=== PATIENT | male | born 1970 | race Caucasian/White ===

== ENCOUNTER 2018-01-30 22:21 | Inpatient (IN) ==
[2018-01-30 23:44] LABS: Basophils % 0.2 %; Eosinophils % 0.3 %; Hematocrit 48.1 % (37.5-50.1); Hemoglobin 17.5 g/dL (12.9-16.9); Immature Granulocytes % 0.8 % (0-4); Lymphocytes % 11.3 %; Mean Corpuscular HGB Conc 36.4 g/dL (31.6-35.5); Mean Corpuscular Hemoglobin 31.2 pg (28.0-33.3); Mean Corpuscular Volume 85.7 fL (83.0-100.0); Mean Platelet Volume 10.6 fL (9.4-12.4); Monocytes # 1.6 K/mcL (0.0-1.3); Monocytes % 17.9 %; Neutrophils # 6.3 K/mcL (1.6-8.9); Platelet Count 263 K/mcL (140-400); Red Blood Count 5.61 M/mcL (4.19-5.50); Red Cell Distribution Width 13.2 % (11.5-14.5); Segmented Neutrophils % 69.5 %
--- NOTE | 2018-01-30 23:50 | Emergency Department Note ---
Disposition Clinical Impression: Hyperbilirubinemia, Transaminitis, Positive occult stool blood test Hepatitis A Qualifiers: Hepatic coma status: without hepatic coma Qualified Code(s): B15.9 - Hepatitis A without hepatic coma Hepatitis C Qualifiers: Viral hepatitis chronicity: acute Hepatic coma status: without hepatic coma Qualified Code(s): B17.10 - Acute hepatitis C without hepatic coma Disposition: Admitted As Inpatient Condition: Serious Referrals: NONE,PCP [Primary Care Provider] - Forms: ED Satisfaction Letter, Work/School Release Time of Disposition: 02:19 General Adult HPI - General Chief complaint: ED General Medical Stated complaint: Kidney Failure Time Seen by Provider: 01/30/18 23:44 Source: patient Mode of arrival: ambulatory Limitations: no limitations Nursing Notes Reviewed: Yes Vital Signs Reviewed: Yes - History of Present Illness HPI Narrative: Patient is a 47-year-old male that presents emergency department with abdominal pain and jaundice. Patient states that this is been ongoing for the past 5 days. Patient also states that his urine has become very dark. Patient denies any chest pain or shortness of breath. Patient does state that he has been vomiting. Patient states that has been dark in color and feels like it could be blood in his vomit. Patient states that he does have a history of IV drug use. States that the last time he used anything IV was approximately one week ago. States that it was methamphetamine. Patient states that he does not normally share needles. Patient states that he has been tested for hepatitis in the past and was negative. Patient says that he just overall does not feel well. Pain Scale: 6 - Related Data Allergies Allergy/AdvReac Type Severity Reaction Status Date / Time No Known Allergies Allergy Verified 01/30/18 22:23 All systems ED: reviewed and negative except as stated. Cardiovascular: Denies: chest pain Respiratory: Denies: dyspnea Gastrointestinal: Reports: abdominal pain, nausea, vomiting Genitourinary: Reports: other (Dark urine) Past Medical History - Past Medical History Medical history: Reports: no medical history Psychiatric history: Reports: no psych history - Social History Smoking Status: Current every day smoker Smokeless Tobacco Status: No Alcohol use: Reports: none Drug use: Reports: methamphetamine, IV Drug Use Physical Exam - General Limitations: no limitations General appearance: alert, in distress - Head Head exam: atraumatic, normocephalic - Eye Eye exam: Present: normal appearance, EOMI - Neck Neck exam: Present: normal inspection, full ROM, trachea midline - Respiratory Respiratory exam: Present: normal lung sounds bilaterally. Absent: respiratory distress, wheezes - Cardiovascular Cardiovascular exam: Present: normal rhythm, tachycardia, normal heart sounds, + S1, +S2 - Abdominal Exam Abdominal exam: Present: soft, tenderness, normal bowel sounds Abdominal tenderness: Present: diffuse, moderate - Neurological Exam Neurological exam: Present: alert, oriented X3 - Psychiatric Psychiatric exam: Present: normal affect, normal mood - Skin Skin exam: Present: warm, dry, intact, other (Jaundice) Course Vital Signs Temperature 98.4 F 01/30/18 22:23 Pulse Rate 122 01/30/18 22:23 Respiratory Rate 24 01/30/18 22:23 Blood Pressure 91/55 01/30/18 22:23 O2 Sat by Pulse Oximetry 99 01/30/18 22:23 Temperature 98.4 F 01/30/18 22:23 Pulse Rate 104 01/31/18 01:03 Respiratory Rate 16 01/31/18 01:03 Blood Pressure 108/79 01/31/18 01:03 O2 Sat by Pulse Oximetry 98 01/31/18 01:03 Oxygen Delivery Oxygen Delivery Room Air Medical Decision Making - MDM Narrative Medical decision making narrative: Due the patient's into the emergency department with abdominal pain and jaundice we will obtain a laboratory workup including CBC, BMP, hepatic panel, lipase, urinalysis, ammonia and a hepatitis panel. We will also obtain a CT scan of the abdomen and pelvis. Patient has a significantly elevated bilirubin of 23.4. His AST is greater than 3000 has failed to use greater than 500. This consistent with hepatitis. Patient's hepatitis panel was positive for hepatitis A and hepatitis C. Patient did have a positive stool occult. No active signs of bleeding at this time. Patient's urine was positive for nitrites and leukocyte esterase. Patient does not have any urinary complaints at this time. Will not treat his urine at this time. CT scan of the abdomen and pelvis showed biliary sludge and cholelithiasis or evidence of cholecystitis. Patient's hemoglobin is 17.5. I called and spoke with the admitting hospitalist Dr. Tong and he is accepted the patient to their service. We discussed this case and he felt comfortable with keeping the patient here at [facility]. Patient be admitted to the hospital at this time for further evaluation and management. - Medical Records Medical records reviewed: Yes I reviewed the patient's medical records. - Lab Data Lab results reviewed: Yes I reviewed the patient's lab results. Result diagrams: 01/30/18 23:29 01/30/18 23:29 Lab Results 01/30/18 01/30/18 01/30/18 Range/Units 23:29 23:29 23:29 WBC 9.1 (4.3-11.1) K/mcL RBC 5.61 H (4.19-5.50) M/mcL Hgb 17.5 H (12.9-16.9) g/dL Hct 48.1 (37.5-50.1) % MCV 85.7 (83.0-100.0) fL MCH 31.2 (28.0-33.3) pg MCHC 36.4 H (31.6-35.5) g/dL RDW 13.2 (11.5-14.5) % Plt Count 263 (140-400) K/mcL MPV 10.6 (9.4-12.4) fL Immature Gran % 0.8 (0-4) % Seg Neutrophils % 69.5 % Lymphocytes % 11.3 % Monocytes % 17.9 % Eosinophils % 0.3 % Basophils % 0.2 % Neutrophils # 6.3 (1.6-8.9) K/mcL Lymphocytes # 1.0 (0.6-4.6) K/mcL Monocytes # 1.6 H (0.0-1.3) K/mcL Eosinophils # 0.0 (0.0-0.6) K/mcL Basophils # 0.0 (0.0-0.2) K/mcL PT (9.4-12.1) Seconds INR APTT (26.0-36.0) Seconds Sodium 129 L (136-145) mEq/L Potassium 3.7 (3.5-5.1) mEq/L Chloride 90 L (98-107) mEq/L Carbon Dioxide 25 (23-29) mEq/L BUN 19 (6-20) mg/dL Creatinine 1.27 (0.70-1.30) mg/dL Est GFR ( Amer) > 60 (> 60) Est GFR (Non-Af Amer) > 60 (> 60) BUN/Creatinine Ratio 15 (6-26) Glucose 129 H (70-105) mg/dL Calculated Osmolality 272 L (280-300) Calcium 9.1 (8.6-10.3) mg/dL Total Bilirubin 23.4 H (0.3-1.0) mg/dL Direct Bilirubin 15.3 H (0.0-0.2) mg/dL Indirect Bilirubin 8.1 H (0.0-1.2) mg/dL AST > 3000 H (13-39) Units/L ALT > 500 H (7-52) Units/L Alkaline Phosphatase 94 (34-104) Units/L Ammonia (16-53) mcmol/L Serum Total Protein 6.9 (6.4-8.9) g/dL Albumin 3.3 L (3.5-5.7) g/dL Globulin 3.6 H (2.4-3.5) g/dL Albumin/Globulin Ratio 0.9 L (1.1-2.2) Amylase 42 (29-103) Units/L Lipase 74 (11-82) Units/L Urine Color (Yellow) Urine Clarity (Clear) Urine pH (5.0-8.0) pH Units Ur Specific [place] (1.010-1.025) Urine Protein (Neg-Trace) mg/dL Urine Glucose (UA) (Normal) mg/dL Urine Ketones (Negative) mg/dL Urine Blood (Negative) Urine Nitrite (Negative) Urine Bilirubin (Negative) Urine Urobilinogen (Normal) mg/dL Ur Leukocyte Esterase (Negative) Urine Microscopic RBC (0-3) per hpf Urine Microscopic WBC (0-3) per hpf Ur Squamous Epith Cells (None-Few) per lpf Ur Transition Epith Cell (None-Few) per hpf Urine Bacteria (None-Few) per hpf Hyaline Casts Ur Culture Indicated? (NO) Stool Occult Blood (Negative) Hepatitis A IgM Ab Reactive H (Nonreactive) Hep Bs Antigen Nonreactive (Nonreactive) Hep B Core IgM Ab Nonreactive (Nonreactive) Hepatitis C Ab Screen Reactive H (Nonreactive) 01/30/18 01/30/18 01/31/18 Range/Units 23:29 23:29 01:01 WBC (4.3-11.1) K/mcL RBC (4.19-5.50) M/mcL Hgb (12.9-16.9) g/dL Hct (37.5-50.1) % MCV (83.0-100.0) fL MCH (28.0-33.3) pg MCHC (31.6-35.5) g/dL RDW (11.5-14.5) % Plt Count (140-400) K/mcL MPV (9.4-12.4) fL Immature Gran % (0-4) % Seg Neutrophils % % Lymphocytes % % Monocytes % % Eosinophils % % Basophils % % Neutrophils # (1.6-8.9) K/mcL Lymphocytes # (0.6-4.6) K/mcL Monocytes # (0.0-1.3) K/mcL Eosinophils # (0.0-0.6) K/mcL Basophils # (0.0-0.2) K/mcL PT 20.4 H (9.4-12.1) Seconds INR 1.8 APTT 40.3 H (26.0-36.0) Seconds Sodium (136-145) mEq/L Potassium (3.5-5.1) mEq/L Chloride (98-107) mEq/L Carbon Dioxide (23-29) mEq/L BUN (6-20) mg/dL Creatinine (0.70-1.30) mg/dL Est GFR ( Amer) (> 60) Est GFR (Non-Af Amer) (> 60) BUN/Creatinine Ratio (6-26) Glucose (70-105) mg/dL Calculated Osmolality (280-300) Calcium (8.6-10.3) mg/dL Total Bilirubin (0.3-1.0) mg/dL Direct Bilirubin (0.0-0.2) mg/dL Indirect Bilirubin (0.0-1.2) mg/dL AST (13-39) Units/L ALT (7-52) Units/L Alkaline Phosphatase (34-104) Units/L Ammonia 98 H (16-53) mcmol/L Serum Total Protein (6.4-8.9) g/dL Albumin (3.5-5.7) g/dL Globulin (2.4-3.5) g/dL Albumin/Globulin Ratio (1.1-2.2) Amylase (29-103) Units/L Lipase (11-82) Units/L Urine Color Rhonda A (Yellow) Urine Clarity Cloudy A (Clear) Urine pH 5.5 (5.0-8.0) pH Units Ur Specific [place] 1.024 (1.010-1.025) Urine Protein Negative (Neg-Trace) mg/dL Urine Glucose (UA) Normal (Normal) mg/dL Urine Ketones 15 H (Negative) mg/dL Urine Blood Negative (Negative) Urine Nitrite Positive A (Negative) Urine Bilirubin Large H (Negative) Urine Urobilinogen 4.0 H (Normal) mg/dL Ur Leukocyte Esterase Small H (Negative) Urine Microscopic RBC 15-30 H (0-3) per hpf Urine Microscopic WBC 50-100 H (0-3) per hpf Ur Squamous Epith Cells Moderate H (None-Few) per lpf Ur Transition Epith Cell Many H (None-Few) per hpf Urine Bacteria Many H (None-Few) per hpf Hyaline Casts Test Not Performed Ur Culture Indicated? YES A (NO) Stool Occult Blood (Negative) Hepatitis A IgM Ab (Nonreactive) Hep Bs Antigen (Nonreactive) Hep B Core IgM Ab (Nonreactive) Hepatitis C Ab Screen (Nonreactive) 01/31/18 Range/Units 01:26 WBC (4.3-11.1) K/mcL RBC (4.19-5.50) M/mcL Hgb (12.9-16.9) g/dL Hct (37.5-50.1) % MCV (83.0-100.0) fL MCH (28.0-33.3) pg MCHC (31.6-35.5) g/dL RDW (11.5-14.5) % Plt Count (140-400) K/mcL MPV (9.4-12.4) fL Immature Gran % (0-4) % Seg Neutrophils % % Lymphocytes % % Monocytes % % Eosinophils % % Basophils % % Neutrophils # (1.6-8.9) K/mcL Lymphocytes # (0.6-4.6) K/mcL Monocytes # (0.0-1.3) K/mcL Eosinophils # (0.0-0.6) K/mcL Basophils # (0.0-0.2) K/mcL PT (9.4-12.1) Seconds INR APTT (26.0-36.0) Seconds Sodium (136-145) mEq/L Potassium (3.5-5.1) mEq/L Chloride (98-107) mEq/L Carbon Dioxide (23-29) mEq/L BUN (6-20) mg/dL Creatinine (0.70-1.30) mg/dL Est GFR ( Amer) (> 60) Est GFR (Non-Af Amer) (> 60) BUN/Creatinine Ratio (6-26) Glucose (70-105) mg/dL Calculated Osmolality (280-300) Calcium (8.6-10.3) mg/dL Total Bilirubin (0.3-1.0) mg/dL Direct Bilirubin (0.0-0.2) mg/dL Indirect Bilirubin (0.0-1.2) mg/dL AST (13-39) Units/L ALT (7-52) Units/L Alkaline Phosphatase (34-104) Units/L Ammonia (16-53) mcmol/L Serum Total Protein (6.4-8.9) g/dL Albumin (3.5-5.7) g/dL Globulin (2.4-3.5) g/dL Albumin/Globulin Ratio (1.1-2.2) Amylase (29-103) Units/L Lipase (11-82) Units/L Urine Color (Yellow) Urine Clarity (Clear) Urine pH (5.0-8.0) pH Units Ur Specific [place] (1.010-1.025) Urine Protein (Neg-Trace) mg/dL Urine Glucose (UA) (Normal) mg/dL Urine Ketones (Negative) mg/dL Urine Blood (Negative) Urine Nitrite (Negative) Urine Bilirubin (Negative) Urine Urobilinogen (Normal) mg/dL Ur Leukocyte Esterase (Negative) Urine Microscopic RBC (0-3) per hpf Urine Microscopic WBC (0-3) per hpf Ur Squamous Epith Cells (None-Few) per lpf Ur Transition Epith Cell (None-Few) per hpf Urine Bacteria (None-Few) per hpf Hyaline Casts Ur Culture Indicated? (NO) Stool Occult Blood Positive A (Negative) Hepatitis A IgM Ab (Nonreactive) Hep Bs Antigen (Nonreactive) Hep B Core IgM Ab (Nonreactive) Hepatitis C Ab Screen (Nonreactive) - Radiology Data Radiology results reviewed: Yes I reviewed the patient's radiology results. Abdomen/Pelvis CT 01/31/18 00:01 IMPRESSION: 1. No acute process identified. 2. Low-attenuation of the liver suggests fatty infiltration. 3. Suspected gallbladder sludge or cholelithiasis with no CT evidence for acute cholecystitis. 4. Mild splenomegaly. D/ / Keaton Perez MD / Keaton Perez MD Interpreting Provider: Keaton Perez MD - EKG Data EKG #1 EKG attestation: Yes I reviewed and interpreted this EKG. EKG results narrative: EKG shows a sinus tachycardia at a rate of 113 bpm, OR interval of 155, QRS duration of 103, QTC of 508. No evidence of STEMI on EKG.
[2018-01-31 00:18] LABS: Alanine Aminotransferase > 500 Units/L (7-52); Albumin 3.3 g/dL (3.5-5.7); Albumin/Globulin Ratio 0.9 (1.1-2.2); Alkaline Phosphatase 94 Units/L (34-104); Amylase 42 Units/L (29-103); Aspartate Amino Transferase > 3000 Units/L (13-39); BUN/Creatinine Ratio 15 (6-26); Bilirubin,Direct 15.3 mg/dL (0.0-0.2); Bilirubin,Indirect 8.1 mg/dL (0.0-1.2); Bilirubin,Total 23.4 mg/dL (0.3-1.0); Blood Urea Nitrogen 19 mg/dL (6-20); Calcium 9.1 mg/dL (8.6-10.3); Carbon Dioxide 25 mEq/L (23-29); Chloride 90 mEq/L (98-107); Globulin 3.6 g/dL (2.4-3.5); Glucose 129 mg/dL (70-105); Lipase 74 Units/L (11-82); Osmolality,Calculated 272 (280-300); Potassium 3.7 mEq/L (3.5-5.1); Sodium 129 mEq/L (136-145); Total Protein 6.9 g/dL (6.4-8.9); eGFR For Non-African Americans > 60 (> 60)
[2018-01-31 01:16] LABS: RBC,Urine 15-30 per hpf (0-3); Squamous Epithelial Cell,Urine Moderate per lpf (None-Few); WBC,Urine 50-100 per hpf (0-3)
[2018-01-31 01:17] LABS: Clarity,Urine Cloudy (Clear); Color,Urine Amber (Yellow)
[2018-01-31 01:18] LABS: Bilirubin,Urine Large (Negative); Blood,Urine Negative (Negative); Glucose,Urine (UA) Normal (Normal); Ketones,Urine 15 mg/dL (Negative); Leukocyte Esterase,Urine Small (Negative); Nitrite,Urine Positive (Negative); PH,Urine 5.5 pH Units (5.0-8.0); Protein,Urine Negative (Neg-Trace); Specific Gravity,Urine 1.024 (1.010-1.025)
[2018-01-31 01:21] LABS: Hepatitis B Surface Antigen Nonreactive (Nonreactive)
[2018-01-31 01:22] LABS: Hepatitis B Core IgM Nonreactive (Nonreactive)
[2018-01-31 01:23] LABS: Hepatitis A Antibody IgM Reactive (Nonreactive)
[2018-01-31 01:24] LABS: INR 1.8; Prothrombin Time 20.4 Seconds (9.4-12.1)
[2018-01-31 01:26] LABS: Activated Partial Thrombo Time 40.3 Seconds (26.0-36.0)
[2018-01-31 01:29] LABS: Bacteria,Urine Many per hpf (None-Few)
[2018-01-31 01:32] LABS: Transitional Epi Cells,Urine Many per hpf (None-Few)
[2018-01-31 01:37] LABS: Hepatitis C Virus Antibody Reactive (Nonreactive)
--- NOTE | 2018-01-31 01:55 | Emergency Department Note ---
Disposition Clinical Impression: Hyperbilirubinemia, Transaminitis, Positive occult stool blood test Hepatitis A Qualifiers: Hepatic coma status: without hepatic coma Qualified Code(s): B15.9 - Hepatitis A without hepatic coma Hepatitis C Qualifiers: Viral hepatitis chronicity: acute Hepatic coma status: without hepatic coma Qualified Code(s): B17.10 - Acute hepatitis C without hepatic coma Disposition: Admitted As Inpatient Condition: Serious Referrals: NONE,PCP [Primary Care Provider] - Forms: ED Satisfaction Letter, Work/School Release General Adult HPI - General Chief complaint: ED General Medical Stated complaint: Kidney Failure Time Seen by Provider: 01/30/18 23:44 Source: patient Mode of arrival: ambulatory Limitations: no limitations Nursing Notes Reviewed: Yes Vital Signs Reviewed: Yes - History of Present Illness Pain Scale: 6 - Related Data Home Medications Medication Instructions Recorded Confirmed No Known Home Drugs 01/31/18 01/31/18 Allergies Allergy/AdvReac Type Severity Reaction Status Date / Time No Known Allergies Allergy Verified 01/30/18 22:23 Cardiovascular: Denies: chest pain Respiratory: Denies: dyspnea Gastrointestinal: Reports: abdominal pain, nausea, vomiting Genitourinary: Reports: other (Dark urine) Past Medical History - Past Medical History Medical history: Reports: no medical history Psychiatric history: Reports: no psych history - Social History Smoking Status: Current every day smoker Smokeless Tobacco Status: No Alcohol use: Reports: none Drug use: Reports: methamphetamine, IV Drug Use Physical Exam - General Limitations: no limitations General appearance: alert, in distress Course Vital Signs Temperature 98.4 F 01/30/18 22:23 Pulse Rate 122 01/30/18 22:23 Respiratory Rate 24 01/30/18 22:23 Blood Pressure 91/55 01/30/18 22:23 O2 Sat by Pulse Oximetry 99 01/30/18 22:23 Temperature 98.4 F 01/30/18 22:23 Pulse Rate 104 01/31/18 01:03 Respiratory Rate 16 01/31/18 01:03 Blood Pressure 108/79 01/31/18 01:03 O2 Sat by Pulse Oximetry 98 01/31/18 01:03 Oxygen Delivery Oxygen Delivery Room Air Medical Decision Making - Medical Records Medical records reviewed: Yes I reviewed the patient's medical records. - Lab Data Lab results reviewed: Yes I reviewed the patient's lab results. Result diagrams: 01/30/18 23:29 01/30/18 23:29 Lab Results 01/30/18 01/30/18 01/30/18 Range/Units 23:29 23:29 23:29 WBC 9.1 (4.3-11.1) K/mcL RBC 5.61 H (4.19-5.50) M/mcL Hgb 17.5 H (12.9-16.9) g/dL Hct 48.1 (37.5-50.1) % MCV 85.7 (83.0-100.0) fL MCH 31.2 (28.0-33.3) pg MCHC 36.4 H (31.6-35.5) g/dL RDW 13.2 (11.5-14.5) % Plt Count 263 (140-400) K/mcL MPV 10.6 (9.4-12.4) fL Immature Gran % 0.8 (0-4) % Seg Neutrophils % 69.5 % Lymphocytes % 11.3 % Monocytes % 17.9 % Eosinophils % 0.3 % Basophils % 0.2 % Neutrophils # 6.3 (1.6-8.9) K/mcL Lymphocytes # 1.0 (0.6-4.6) K/mcL Monocytes # 1.6 H (0.0-1.3) K/mcL Eosinophils # 0.0 (0.0-0.6) K/mcL Basophils # 0.0 (0.0-0.2) K/mcL PT (9.4-12.1) Seconds INR APTT (26.0-36.0) Seconds Sodium 129 L (136-145) mEq/L Potassium 3.7 (3.5-5.1) mEq/L Chloride 90 L (98-107) mEq/L Carbon Dioxide 25 (23-29) mEq/L BUN 19 (6-20) mg/dL Creatinine 1.27 (0.70-1.30) mg/dL Est GFR ( Amer) > 60 (> 60) Est GFR (Non-Af Amer) > 60 (> 60) BUN/Creatinine Ratio 15 (6-26) Glucose 129 H (70-105) mg/dL Calculated Osmolality 272 L (280-300) Calcium 9.1 (8.6-10.3) mg/dL Total Bilirubin 23.4 H (0.3-1.0) mg/dL Direct Bilirubin 15.3 H (0.0-0.2) mg/dL Indirect Bilirubin 8.1 H (0.0-1.2) mg/dL AST > 3000 H (13-39) Units/L ALT > 500 H (7-52) Units/L Alkaline Phosphatase 94 (34-104) Units/L Ammonia (16-53) mcmol/L Serum Total Protein 6.9 (6.4-8.9) g/dL Albumin 3.3 L (3.5-5.7) g/dL Globulin 3.6 H (2.4-3.5) g/dL Albumin/Globulin Ratio 0.9 L (1.1-2.2) Amylase 42 (29-103) Units/L Lipase 74 (11-82) Units/L Urine Color (Yellow) Urine Clarity (Clear) Urine pH (5.0-8.0) pH Units Ur Specific [place] (1.010-1.025) Urine Protein (Neg-Trace) mg/dL Urine Glucose (UA) (Normal) mg/dL Urine Ketones (Negative) mg/dL Urine Blood (Negative) Urine Nitrite (Negative) Urine Bilirubin (Negative) Urine Urobilinogen (Normal) mg/dL Ur Leukocyte Esterase (Negative) Urine Microscopic RBC (0-3) per hpf Urine Microscopic WBC (0-3) per hpf Ur Squamous Epith Cells (None-Few) per lpf Ur Transition Epith Cell (None-Few) per hpf Urine Bacteria (None-Few) per hpf Hyaline Casts Ur Culture Indicated? (NO) Stool Occult Blood (Negative) Hepatitis A IgM Ab Reactive H (Nonreactive) Hep Bs Antigen Nonreactive (Nonreactive) Hep B Core IgM Ab Nonreactive (Nonreactive) Hepatitis C Ab Screen Reactive H (Nonreactive) 01/30/18 01/30/18 01/31/18 Range/Units 23:29 23:29 01:01 WBC (4.3-11.1) K/mcL RBC (4.19-5.50) M/mcL Hgb (12.9-16.9) g/dL Hct (37.5-50.1) % MCV (83.0-100.0) fL MCH (28.0-33.3) pg MCHC (31.6-35.5) g/dL RDW (11.5-14.5) % Plt Count (140-400) K/mcL MPV (9.4-12.4) fL Immature Gran % (0-4) % Seg Neutrophils % % Lymphocytes % % Monocytes % % Eosinophils % % Basophils % % Neutrophils # (1.6-8.9) K/mcL Lymphocytes # (0.6-4.6) K/mcL Monocytes # (0.0-1.3) K/mcL Eosinophils # (0.0-0.6) K/mcL Basophils # (0.0-0.2) K/mcL PT 20.4 H (9.4-12.1) Seconds INR 1.8 APTT 40.3 H (26.0-36.0) Seconds Sodium (136-145) mEq/L Potassium (3.5-5.1) mEq/L Chloride (98-107) mEq/L Carbon Dioxide (23-29) mEq/L BUN (6-20) mg/dL Creatinine (0.70-1.30) mg/dL Est GFR ( Amer) (> 60) Est GFR (Non-Af Amer) (> 60) BUN/Creatinine Ratio (6-26) Glucose (70-105) mg/dL Calculated Osmolality (280-300) Calcium (8.6-10.3) mg/dL Total Bilirubin (0.3-1.0) mg/dL Direct Bilirubin (0.0-0.2) mg/dL Indirect Bilirubin (0.0-1.2) mg/dL AST (13-39) Units/L ALT (7-52) Units/L Alkaline Phosphatase (34-104) Units/L Ammonia 98 H (16-53) mcmol/L Serum Total Protein (6.4-8.9) g/dL Albumin (3.5-5.7) g/dL Globulin (2.4-3.5) g/dL Albumin/Globulin Ratio (1.1-2.2) Amylase (29-103) Units/L Lipase (11-82) Units/L Urine Color Rhonda A (Yellow) Urine Clarity Cloudy A (Clear) Urine pH 5.5 (5.0-8.0) pH Units Ur Specific [place] 1.024 (1.010-1.025) Urine Protein Negative (Neg-Trace) mg/dL Urine Glucose (UA) Normal (Normal) mg/dL Urine Ketones 15 H (Negative) mg/dL Urine Blood Negative (Negative) Urine Nitrite Positive A (Negative) Urine Bilirubin Large H (Negative) Urine Urobilinogen 4.0 H (Normal) mg/dL Ur Leukocyte Esterase Small H (Negative) Urine Microscopic RBC 15-30 H (0-3) per hpf Urine Microscopic WBC 50-100 H (0-3) per hpf Ur Squamous Epith Cells Moderate H (None-Few) per lpf Ur Transition Epith Cell Many H (None-Few) per hpf Urine Bacteria Many H (None-Few) per hpf Hyaline Casts Test Not Performed Ur Culture Indicated? YES A (NO) Stool Occult Blood (Negative) Hepatitis A IgM Ab (Nonreactive) Hep Bs Antigen (Nonreactive) Hep B Core IgM Ab (Nonreactive) Hepatitis C Ab Screen (Nonreactive) 01/31/18 Range/Units 01:26 WBC (4.3-11.1) K/mcL RBC (4.19-5.50) M/mcL Hgb (12.9-16.9) g/dL Hct (37.5-50.1) % MCV (83.0-100.0) fL MCH (28.0-33.3) pg MCHC (31.6-35.5) g/dL RDW (11.5-14.5) % Plt Count (140-400) K/mcL MPV (9.4-12.4) fL Immature Gran % (0-4) % Seg Neutrophils % % Lymphocytes % % Monocytes % % Eosinophils % % Basophils % % Neutrophils # (1.6-8.9) K/mcL Lymphocytes # (0.6-4.6) K/mcL Monocytes # (0.0-1.3) K/mcL Eosinophils # (0.0-0.6) K/mcL Basophils # (0.0-0.2) K/mcL PT (9.4-12.1) Seconds INR APTT (26.0-36.0) Seconds Sodium (136-145) mEq/L Potassium (3.5-5.1) mEq/L Chloride (98-107) mEq/L Carbon Dioxide (23-29) mEq/L BUN (6-20) mg/dL Creatinine (0.70-1.30) mg/dL Est GFR ( Amer) (> 60) Est GFR (Non-Af Amer) (> 60) BUN/Creatinine Ratio (6-26) Glucose (70-105) mg/dL Calculated Osmolality (280-300) Calcium (8.6-10.3) mg/dL Total Bilirubin (0.3-1.0) mg/dL Direct Bilirubin (0.0-0.2) mg/dL Indirect Bilirubin (0.0-1.2) mg/dL AST (13-39) Units/L ALT (7-52) Units/L Alkaline Phosphatase (34-104) Units/L Ammonia (16-53) mcmol/L Serum Total Protein (6.4-8.9) g/dL Albumin (3.5-5.7) g/dL Globulin (2.4-3.5) g/dL Albumin/Globulin Ratio (1.1-2.2) Amylase (29-103) Units/L Lipase (11-82) Units/L Urine Color (Yellow) Urine Clarity (Clear) Urine pH (5.0-8.0) pH Units Ur Specific [place] (1.010-1.025) Urine Protein (Neg-Trace) mg/dL Urine Glucose (UA) (Normal) mg/dL Urine Ketones (Negative) mg/dL Urine Blood (Negative) Urine Nitrite (Negative) Urine Bilirubin (Negative) Urine Urobilinogen (Normal) mg/dL Ur Leukocyte Esterase (Negative) Urine Microscopic RBC (0-3) per hpf Urine Microscopic WBC (0-3) per hpf Ur Squamous Epith Cells (None-Few) per lpf Ur Transition Epith Cell (None-Few) per hpf Urine Bacteria (None-Few) per hpf Hyaline Casts Ur Culture Indicated? (NO) Stool Occult Blood Positive A (Negative) Hepatitis A IgM Ab (Nonreactive) Hep Bs Antigen (Nonreactive) Hep B Core IgM Ab (Nonreactive) Hepatitis C Ab Screen (Nonreactive) - Radiology Data Radiology results reviewed: Yes I reviewed the patient's radiology results. Abdomen/Pelvis CT 01/31/18 00:01 IMPRESSION: 1. No acute process identified. 2. Low-attenuation of the liver suggests fatty infiltration. 3. Suspected gallbladder sludge or cholelithiasis with no CT evidence for acute cholecystitis. 4. Mild splenomegaly. D/ / Keaton Perez MD / Keaton Perez MD Interpreting Provider: Keaton Perez MD Critical Care Time Critical Care Time: Yes Total Critical Care Time: 35 Attestation: Critical care performed: Time is exclusive of separately billable procedures. Time includes: direct patient care, patient reassessment, coordination of patient care, interpretation of data (laboratory data, radiology data, and respiratory data), review of patient's medical records, medical consultation and documentation of patient care. Procedures included in critical care time: Procedures excluded from critical care time: Attestation Statement - Attestation Attestation: I, Anders Toussaint MD, personally evaluated this patient and discussed their management with the resident physician. I reviewed the resident's note and agree with the documented findings, medical decision making, and plan of care. 47-year-old male presents to the emergency department with a complaint of hiccups with bilateral mid and upper abdominal pain which started about one week prior to arrival. Symptoms started a few days after injecting some meth. Patient also has developed nausea and vomiting for the past several days. Some dark emesis and dark blood in the vomiting. He has had only had one bowel movement in the last week which he states was black. No chest pain other than from the hiccups. No shortness of breath. No fever. Also noticed that his urine is extremely dark. Also complains of jaundice. He denies prior known history of hepatitis. On examination patient is a well-developed well-nourished male in no acute distress. He is alert and oriented 3. There is no cyanosis or diaphoresis. Patient does have marked jaundice and scleral icterus. Frequent hiccups noted. Breath sounds are clear and equal bilaterally. Heart regular with a mild tachycardia. Abdomen soft with mild diffuse upper abdominal tenderness palpable organomegaly or masses. No guarding or rebound tenderness. On rectal exam by me there was some soft light brownish yellow stool in the rectum. No gross blood or melena. Labs reviewed. Hepatitis. Panel positive for hepatitis A and hepatitis C. The hospitalist, Dr. Tong, was consulted and accepted admission of the patient.
[2018-01-31] MEDS ORDERED: Naloxone 0.4 MG/ML INJ IVP PRN ×2 (04:27→06:30)
[2018-01-31] MEDS ORDERED: Metoclopramide 10 MG/10 ML UD.LIQ PO PRN ×2 (04:51→10:46)
[2018-01-31] MEDS ORDERED: Ondansetron 4 MG/2 ML VIAL IVP PRN (04:51)
--- NOTE | 2018-01-31 05:03 | Internal Med History&Physical ---
Addendum entered and electronically signed by Michele Romero DO 06:32: UTI: patient denies dysuria, urinary frequency and urgency. Urinalysis positive for nitrite, esterase but also dirty catch. Repeat urinalysis. Original Note: <HeatherMichele Diehl - Last Filed: 01/31/18 05:41> Date of Encounter: 01/31/18 Time of Encounter: 05:00 Internal Medicine - H&P: HPI Chief complaint: Jaundice Admitted From: Home Plans for Post Hospital Care: Home History of present illness: Mr. Conteh is a 47 year old male presented chief complaint jaundice 5 days. Patient reports that a friend of his noticed that he was jaundiced. He also notices urine become very dark. He started having nausea and vomiting. He states he vomited multiple times and has been having nonstop hiccups. He does report dark red vomit and reports it is likely blood. He also states since admission his had 1 additional bout of vomiting with bright red blood about a fourth of a cup. He reports one black bowel movement today. Patient has a history of IV drug use for the last 6 weeks. He uses methamphetamine. He denies heroin use, needle sharing. He states he has been tested for hepatitis in the past was negative. He reports anal sex with women. He denies previous abdominal surgeries, alcohol use. Patient reports he is a smoker. He denies any family history. 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 Patient has tattoos and reports that her from safe places. Past Med Surg Social Fam HX - Past Medical History Medical history: no medical history Psychiatric history: no psych history - Past Surgical History Surgical History: no surgical history - Social History Smoking Status: Current every day smoker Smokeless Tobacco Status: No Alcohol use: none Drug use: methamphetamine, IV Drug Use Occupational status: employed Current living situation: Home - Independent Internal Medicine - H&P: Meds No Known Home Drugs 01/31/18 [History] 3 Allergy/AdvReac Type Severity Reaction Status Date / Time No Known Allergies Allergy Verified 01/30/18 22:23 All Systems PM: A 10-system review of systems was performed and is negative for pertinent findings except as documented above in the HPI. Review of systems: Constitutional: Denies fever, chills HEENT: Denies headache, trauma, blurry vision, eye discharge, ear pain, ear discharge neck pain, sore throat, rhinorrhea Heart: Denies chest pain palpitations, LE edema Lungs: Denies shortness of breath cough Abdomen: Denies abdominal pain. Reports nausea vomiting, black stool, hematemesis MSK: Denies back pain, falls, joint pain Kidney: Denies dysuria, hematuria Skin: Denies rash, ulcers Neuro: Denies numbness and tingling Psych: denies axniety, depression - Constitutional Vitals: Temp Pulse Resp BP Pulse Ox 98.7 F 97 14 115/82 98 01/31/18 03:11 01/31/18 03:11 01/31/18 03:11 01/31/18 03:11 01/31/18 03:11 Exam: General: pleasant, mild distress, jaundice HEENT: Head atraumatic, normocephalic, EOMI, PERRL, absent ear discharge or trauma, Moist Mucous Membranes, uvula midline. Scleral icterus Neck: nontender to palpation, absent lymphadenopathy, Cardiovascualr: Regular rate and rhythm with no murmur, absent gallops or rubs, absent pedal edema, radial pulses 2 out of 4 Lungs: Clear to auscultation bilaterally, not in respiratory distress Abdomen: Soft nontender, nondistended positive bowel sounds, absent hepatomegaly Skin: Jaundice, absent rash, absent open wounds and nodules MSK: absent clubbing, cyanosis, joints without swelling Neuro: Cranial nerves II through XII intact, UE and LE sensation equal bilaterally, UE and LEstrength 5/5, alert oriented 3, Psych: Poor insight and judgment, anxious Internal Med - H&P Results - Labs CBC & Chem 7: 01/30/18 23:29 01/30/18 23:29 - Assessment and plan (1) Transaminitis Current Visit: Yes Status: Acute Assessment and plan: Secondary to hepatitis A in conjunction with hepatitis C alert and oriented x3 liver ultrasound We will start patient on IV fluids Nothing by mouth Zofran when necessary nausea Reglan when necessary hiccups (2) Positive occult stool blood test Current Visit: Yes Status: Acute Assessment and plan: Patient reports hematemesis and melena Hemoglobin 17.5 secondary to hemoconcentration Blood pressure is stable at 115/82 Starting patient on IV fluids PPI twice a day, surgery consult (3) Hepatitis A Current Visit: Yes Status: Acute Assessment and plan: Patient has hepatitis A Reports anal sex, Plan as above. Qualifiers: Hepatic coma status: without hepatic coma Qualified Code(s): B15.9 - Hepatitis A without hepatic coma (4) Hepatitis C Current Visit: Yes Status: Acute Assessment and plan: Patient has newly diagnosed hepatitis C He is IV drug user Will need outpatient follow-up with GI Qualifiers: Viral hepatitis chronicity: acute Hepatic coma status: without hepatic coma Qualified Code(s): B17.10 - Acute hepatitis C without hepatic coma (5) IV drug user Current Visit: Yes Status: Acute Assessment and plan: Patient uses methamphetamine IV for the last 6 weeks Reports last use was one week ago UDS - Time Spent With Patient Total time spent is greater than 50% in coordination of care (as documented) at patient's floor/unit and/or counseling patient: <Chela Jose - Last Filed: 01/31/18 08:03> Date of Encounter: 01/31/18 Internal Medicine - H&P: HPI History of present illness: Mr. Conteh is a 47 year old male All Systems PM: A 10-system review of systems was performed and is negative for pertinent findings except as documented above in the HPI. - Constitutional Vitals: Temp Pulse Resp BP Pulse Ox 98.7 F 97 14 115/82 98 01/31/18 03:11 01/31/18 03:11 01/31/18 03:11 01/31/18 03:11 01/31/18 03:11 Internal Med - H&P Results - Labs CBC & Chem 7: 01/31/18 06:57 01/30/18 23:29 Labs: Short CBC 01/31/18 Range/Units 06:57 Hgb 16.7 (12.9-16.9) g/dL Hct 46.9 (37.5-50.1) % Urine 01/31/18 Range/Units 06:50 Urine Color [place] A (Yellow) Urine Clarity Cloudy A (Clear) Urine pH 6.0 (5.0-8.0) pH Units Ur Specific [place] 1.018 (1.010-1.025) Urine Protein Negative (Neg-Trace) mg/dL Urine Glucose (UA) Normal (Normal) mg/dL - Assessment and plan (1) Hepatitis A Current Visit: Yes Status: Acute Qualifiers: Hepatic coma status: without hepatic coma Qualified Code(s): B15.9 - Hepatitis A without hepatic coma (2) Hepatitis C Current Visit: Yes Status: Acute Qualifiers: Viral hepatitis chronicity: acute Hepatic coma status: without hepatic coma Qualified Code(s): B17.10 - Acute hepatitis C without hepatic coma (3) Transaminitis Current Visit: Yes Status: Acute (4) Positive occult stool blood test Current Visit: Yes Status: Acute (5) IV drug user Current Visit: Yes Status: Acute - Time Spent With Patient Total time spent is greater than 50% in coordination of care (as documented) at patient's floor/unit and/or counseling patient: - Attending Attestation Patient seen and examined. Case discussed with resident. Continue supportive care in the setting of likely hepatitis A acute infection. GI to follow. Surgery to be consult in the setting of possible upper GI bleed most likely concerning for Renetta-Recinos tear given history of vomiting. Low suspicion for variceal hemorrhage.
[2018-01-31] MEDS: 0.9 % Sodium Chloride 1,000 ML IVC SCH ×2 (05:40→16:21)
[2018-01-31] MEDS: Pantoprazole 40 MG VIAL IVP SCH ×2 (05:41→19:04)
[2018-01-31 07:00] LABS: Bilirubin,Urine Large (Negative); Blood,Urine Negative (Negative); Clarity,Urine Cloudy (Clear); Color,Urine Orange (Yellow); Glucose,Urine (UA) Normal (Normal); Ketones,Urine 15 mg/dL (Negative); Leukocyte Esterase,Urine Small (Negative); Nitrite,Urine Negative (Negative); Protein,Urine Negative (Neg-Trace); Specific Gravity,Urine 1.018 (1.010-1.025)
[2018-01-31 07:04] LABS: Amphetamine Screen,Urine Negative ng/mL (Cutoff=1000); Barbiturate Screen,Urine Negative ng/mL (Cutoff=200)
[2018-01-31 07:05] LABS: Benzodiazepines Screen,Urine Negative ng/mL (Cutoff=300); Cannabinoid Screen,Urine Negative ng/mL (Cutoff = 50); Cocaine Screen,Urine Negative ng/mL (Cutoff= 300); Opiate Screen,Urine Negative ng/mL (Cutoff=300); Phencyclidine Screen,Urine Negative ng/mL (Cutoff=25)
[2018-01-31 07:20] LABS: Bacteria,Urine Few per hpf (None-Few); RBC,Urine 0-3 per hpf (0-3); Squamous Epithelial Cell,Urine Few per lpf (None-Few); WBC,Urine 0-3 per hpf (0-3)
[2018-01-31 07:31] LABS: Hematocrit 46.9 % (37.5-50.1); Hemoglobin 16.7 g/dL (12.9-16.9)
[2018-01-31] MEDS ORDERED: Metoclopramide 10 MG/10 ML UD.LIQ PO ONE (10:43)
--- NOTE | 2018-01-31 11:54 | Event Note ---
Date of Encounter: 01/31/18 Time of Encounter: 09:40 H&P reviewed. 47-year-old male is admitted for final hepatitis and questionable GI bleed. Denies any dysuria, urinary frequency, or hematuria. On examination, he is afebrile and hemodynamically stable. Grossly jaundiced with mild right upper quadrant tenderness on palpation. AST/ALT >3000 and >500 respectively along with Tbili of 23.4. ALP normal. INR 1.8. Hemoglobin is stable but FOBT was positive ?M-W tear from retching and constant hiccups. Symptomatic management, NPO but allow ice chips, follow up on US liver and surgical consultation, and trend LFT.
--- NOTE | 2018-01-31 19:10 | General Surgery Consult Note ---
Date of Encounter: 01/31/18 Time of Encounter: 18:58 History of Present Illness Consult date: 01/31/18 Reason for consult: other (FOBT stool) Requesting physician: Michele Romero History of present illness: General Surgery / GI coverage 47-year-old male referred to GI for further evaluation of Hemoccult-positive stool. The patient presented to [facility] ED late evening 01/30/18 complaining of abdominal pain and jaundice. Symptoms apparently have been ongoing for 5 days. The patient remarks that his urine has become very dark. Patient has a known history of IV drug abuse. Laboratories on admission showed a white count of 9.1 , hemoglobin 17.5 with hematocrit 48.1. Platelet count 263,000. PT 20.4, INR 1.8, APTT 40.3- this is remarkable as the patient is on no antiplatelet drugs or anticoagulation. Sodium 129, potassium 3.7, BUN 19, creatinine 1.27. Total bilirubin markedly elevated at 23.4 with direct bilirubin 15.3. AST greater than 3000, ALT greater than 500, ammonia 98. Amylase and lipase were within normal limits. Hepatitis serology positive for hepatitis A IgM and hepatitis C antibody. Urinalysis was markedly abnormal with large urine bilirubin consistent with the patient's jaundice and acute hepatitis. Past medical history: IV drug abuse; history of anal sex with women. 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 Patient denies any alcohol use. Physical examination thin: Age-appropriate male in no acute distress. He has multiple cutaneous tattoos he is deeply jaundiced. The patient has been afebrile since his admission; current temperature 99.2. Pulse recently 97-110 but as high as 122 on presentation last evening Respirations 16-24; blood pressure 91/55- 115/68. SPO2 on room air 95%. Lungs: Clear Cardiac: Rapid rate without discernible murmurs Abdomen: Soft nontender. No obvious masses, no rebound Extremities: No obvious clubbing, cyanosis, or edema. Repeat hemoglobin and hematocrit - 16.7 / 46.9. Impression: 47-year-old male for to GI for further evaluation of Hemoccult- positive stool. He has a known history of IV drug abuse with hepatitis serology positive for both hepatitis A and C. The patient is deeply jaundiced consistent with with acute hepatitis. Liver dysfunction has likely resulted in effective anticoagulation evident by elevated PT, INR, and APTT. Unless there is a significant drop in the patient's H&H - urgent endoscopic evaluation for GI hemorrhage is not indicated. Endoscopy may be indicated after sufficient recovery of his liver and resolution/control of his acute hepatitis. Thank you for this consultation; I will follow along with you and make further recommendations if there is significant change in the patient's status Past Med Surg Social Fam HX - Past Medical History Medical history: no medical history Psychiatric history: no psych history - Past Surgical History Surgical History: no surgical history - Social History Smoking Status: Current every day smoker Smokeless Tobacco Status: No Alcohol use: none Drug use: methamphetamine, IV Drug Use Medications and Allergies No Known Home Drugs 01/31/18 [History] 3 Allergy/AdvReac Type Severity Reaction Status Date / Time No Known Allergies Allergy Verified 01/31/18 09:47 Review of Systems All systems PM: The remainder of the systems were reviewed and are negative General Surgery Exam Initial Vital Signs Temp Pulse Resp BP Pulse Ox 98.4 F 122 24 91/55 99 01/30/18 22:23 01/30/18 22:23 01/30/18 22:23 01/30/18 22:23 01/30/18 22:23 Exam Initial Vital Signs Temp Pulse Resp BP Pulse Ox 98.4 F 122 24 91/55 99 01/30/18 22:23 01/30/18 22:23 01/30/18 22:23 01/30/18 22:23 01/30/18 22:23 Results - Labs 01/31/18 06:57 01/30/18 23:29 Abnormal lab results RBC 5.61 M/mcL (4.19-5.50) H 01/30/18 23:29 MCHC 36.4 g/dL (31.6-35.5) H 01/30/18 23:29 Monocytes # 1.6 K/mcL (0.0-1.3) H 01/30/18 23:29 PT 20.4 Seconds (9.4-12.1) H 01/30/18 23:29 APTT 40.3 Seconds (26.0-36.0) H 01/30/18 23:29 Sodium 129 mEq/L (136-145) L 01/30/18 23:29 Chloride 90 mEq/L (98-107) L 01/30/18 23:29 Glucose 129 mg/dL (70-105) H 01/30/18 23:29 Calculated Osmolality 272 (280-300) L 01/30/18 23:29 Total Bilirubin 23.4 mg/dL (0.3-1.0) H 01/30/18 23:29 Direct Bilirubin 15.3 mg/dL (0.0-0.2) H 01/30/18 23:29 Indirect Bilirubin 8.1 mg/dL (0.0-1.2) H 01/30/18 23:29 AST > 3000 Units/L (13-39) H 01/30/18 23:29 ALT > 500 Units/L (7-52) H 01/30/18 23:29 Ammonia 98 mcmol/L (16-53) H 01/30/18 23:29 Albumin 3.3 g/dL (3.5-5.7) L 01/30/18 23: Globulin 3.6 g/dL (2.4-3.5) H 01/30/18 23:29 Albumin/Globulin Ratio 0.9 (1.1-2.2) L 01/30/18 23:29 Urine Color [place] (Yellow) A 01/31/18 06:50 Urine Clarity Cloudy (Clear) A 01/31/18 06:50 Urine Ketones 15 mg/dL (Negative) H 01/31/18 06:50 Urine Bilirubin Large (Negative) H 01/31/18 06:50 Urine Urobilinogen 4.0 mg/dL (Normal) H 01/31/18 06:50 Ur Leukocyte Esterase Small (Negative) H 01/31/18 06:50 Ur Transition Epith Cell Many per hpf (None-Few) H 01/31/18 01:01 Ur Culture Indicated? YES (NO) A 01/31/18 06:50 Stool Occult Blood Positive (Negative) A 01/31/18 01:26 Hepatitis A IgM Ab Reactive (Nonreactive) H 01/30/18 23:29 Hepatitis C Ab Screen Reactive (Nonreactive) H 01/30/18 23:29 All other labs normal. Consult Discharge Plan - Plan Referrals: NONE,PCP [Primary Care Provider] -
[2018-02-01 05:09] LABS: Prothrombin Time 22.3 Seconds (9.4-12.1)
[2018-02-01 05:22] LABS: Basophils % 0.4 %; Eosinophils % 0.4 %; Hematocrit 43.5 % (37.5-50.1); Hemoglobin 15.4 g/dL (12.9-16.9); Immature Granulocytes % 0.4 % (0-4); Lymphocytes % 17.2 %; Mean Corpuscular HGB Conc 35.4 g/dL (31.6-35.5); Mean Corpuscular Hemoglobin 31.1 pg (28.0-33.3); Mean Corpuscular Volume 87.9 fL (83.0-100.0); Mean Platelet Volume 10.9 fL (9.4-12.4); Monocytes # 0.9 K/mcL (0.0-1.3); Monocytes % 16.7 %; Neutrophils # 3.6 K/mcL (1.6-8.9); Platelet Count 200 K/mcL (140-400); Red Blood Count 4.95 M/mcL (4.19-5.50); Segmented Neutrophils % 64.9 %
[2018-02-01 05:38] LABS: Magnesium 2.1 mg/dL (1.6-2.6); Phosphorous 1.5 mg/dL (2.7-4.5)
[2018-02-01 05:54] LABS: Alanine Aminotransferase > 500 Units/L (7-52); Albumin 2.6 g/dL (3.5-5.7); Albumin/Globulin Ratio 0.9 (1.1-2.2); Alkaline Phosphatase 75 Units/L (34-104); Aspartate Amino Transferase > 3000 Units/L (13-39); BUN/Creatinine Ratio 11 (6-26); Bilirubin,Total 21.3 mg/dL (0.3-1.0); Blood Urea Nitrogen 13 mg/dL (6-20); Calcium 7.6 mg/dL (8.6-10.3); Carbon Dioxide 27 mEq/L (23-29); Chloride 93 mEq/L (98-107); Glucose 158 mg/dL (70-105); Osmolality,Calculated 271 (280-300); Potassium 3.3 mEq/L (3.5-5.1); Sodium 129 mEq/L (136-145); Total Protein 5.6 g/dL (6.4-8.9); eGFR For Non-African Americans > 60 (> 60)
[2018-02-01] MEDS: Pantoprazole 40 MG VIAL IVP SCH (06:28)
[2018-02-01] MEDS ORDERED: 0.9 % Sodium Chloride 1,000 ML IVC SCH (07:30)
[2018-02-01] MEDS ORDERED: Potassium Chloride Elixir 20 MEQ/15 ML UDC PO SCH (09:00)
--- NOTE | 2018-02-01 12:29 | Discharge Summary ---
- NOTES TO OUTPATIENT PROVIDER Notes to Outpatient Provider: Patient was admitted for abdominal pain and jaundice in the setting of hepatitis A and C. No evidence of ascites or hepatic encephalopathy despite elevated ammonia. Given the findings of acute liver failure with worsening synthetic functions and hyperbilirubinemia, he was transferred to [facility] under Hepatology where transplant team is available. Date of Encounter: 02/01/18 Time of Encounter: 12:00 - Discharge Diagnosis (1) Acute liver failure due to hepatitis virus Priority: Primary Status: Acute (2) Hepatitis A Priority: Secondary Status: Acute Qualifiers: Hepatic coma status: without hepatic coma Qualified Code(s): B15.9 - Hepatitis A without hepatic coma (3) Hepatitis C Priority: Secondary Status: Acute Qualifiers: Viral hepatitis chronicity: acute Hepatic coma status: without hepatic coma Qualified Code(s): B17.10 - Acute hepatitis C without hepatic coma (4) Transaminitis Priority: Secondary Status: Acute (5) IV drug user Priority: Secondary Status: Acute Hospital course: Mr. Conteh is a 47 year old male with history of IVDU was admitted for abdominal pain and jaundice in the setting of hepatitis A and C. No evidence of ascites or hepatic encephalopathy despite elevated ammonia. Given the findings of acute liver failure with worsening synthetic functions and hyperbilirubinemia, he was transferred to [facility] under Hepatology where transplant team is available. Discharge discussed with: patient, recruiting consultant (discussed with [facility] personal injury legal assistant, Dr. Johnson.) - Time Spent with Patient Total time spent providing and/or coordinating discharge services: Greater than 30 minutes - Discharge Medications Home Medications: Metoclopramide [Reglan] 5 mg PO Q6HR PRN ud.liq 02/01/18 [Rx] Ondansetron [Zofran] 4 mg IVP Q6HR PRN vial 02/01/18 [Rx] Allergies/Adverse Reactions: 3 Allergy/AdvReac Type Severity Reaction Status Date / Time No Known Allergies Allergy Verified 01/31/18 09:47 Date of admission: 01/31/18 14:06 Primary care physician: PCP NONE - Constitutional Vitals: Temp Pulse Resp BP Pulse Ox 99.4 F 107 16 109/67 99 02/01/18 11:04 02/01/18 11:04 02/01/18 11:04 02/01/18 11:04 02/01/18 11:04 Exam: General: alert and oriented, not in distress HEENT: profoundly jaundiced Cardiovascualr: Regular rate and rhythm with no murmur, absent gallops or rubs, absent pedal edema Lungs: Clear to auscultation bilaterally, not in respiratory distress Abdomen: Soft nontender, nondistended positive bowel sounds, no spider nevi or hepatomegaly MSK: absent clubbing, cyanosis Neuro: No focal deficits, no asterixis - Patient Status Disposition: Transfer Critical Access Hosp Condition: Serious - Discharge Instructions Follow Up With: NONE,PCP [Primary Care Provider] - - Diet and Activity Activity: as per physical therapy Diet: advance to your usual diet
[2018-02-01 15:36] VITALS: BP 112/67
--- NOTE | 2018-02-03 06:36 | Electrocardiograph Report ---
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
== END 2018-02-01 17:43 | disposition critical access hospital (66) | DRG 442 ==
LOC: EMEROOARM 22:21 → 3ANU 22:21 → SUATTDRO 01-31 02:48 → 3ANU 01-31 02:59
PROVIDERS: ADMIT Internal Medicine; ATTEND Internal Medicine